=== PATIENT | male | born 1985 | race Two or more races ===

== ENCOUNTER 2017-03-06 13:10 | Emergency (ER) | payer OTHER ==
[~2017-03-06] VITALS: Ht 165.1 cm; Wt 72.6 kg
[2017-03-06 13:21] VITALS: BP 121/77
[2017-03-06] MEDS ORDERED: LIDOCAINE 1% / SOD BICARB 8.4% 20 ML VIAL. IJ ONE (13:30)
[2017-03-06] MEDS ORDERED: DIPHTH,PERTUSS(ACELL),TET TOX 0.5 ML DISP.SYRIN. VAX IM ONE (13:30)
[2017-03-06] MEDS ORDERED: HYDR-2758 PO (13:50)
--- NOTE | 2017-03-06 13:50 | PHYS DOC ---
Past Medical History Past Medical History: No Pertinent History Past Surgical History: No Surgical History Alcohol Use: Occasionally Drug Use: None Adult General Chief Complaint Chief Complaint: LACERATION/AVULSION HPI HPI 31-year-old male presenting to the emergency department after sustaining a right thumb laceration. It happened while he was working on a bike chain when it snapped and injured his thumb. It happened around 12:30. He has pain in his thumb that is severe intermittent nonradiating without alleviating factors. He denies any injury to his wrist or elbow. He denies any other injury. Review of systems is negative for chest pain shortness of breath nausea vomiting. All other review of systems is negative unless otherwise noted in history of present illness. ED course: 31-year-old male presenting to the emergency department today after sustaining a laceration injury to his right thumb. It involves the thumbnail. Otherwise secondary survey unremarkable for any other traumatic injury. Digital block performed on the right thumb. Wound was cleaned out. Tetanus updated. The wound was mostly macerated tissue was not a simple linear laceration. There were aspects of the wound they were able to be reapproximated with nonabsorbable sutures. The wound was then covered with nonadherent gauze. Patient was a follow-up with his doctor in 2-3 days. Strict return precautions were given to the patient for possible developing of infection. The patient was then discharged home in stable condition to follow up with their primary care physician over the next 2-3 days. They were to return if their symptoms worsened or if they were concerned for any reason. [id number] discharge instructions and return precautions were given. Patient's questions were answered to their satisfaction. Patient is comfortable plan. Review of Systems Review of Systems SEE ABOVE. Current Medications Current Medications Current Medications Medications (Trade) Dose Ordered Sig/Fabian Start Time Stop Time Status Last Admin Dose Admin Acetaminophen/ Hydrocodone Bitart (Lortab 5/325) 2 tab 1X ONCE 03/06/17 15:00 03/06/17 15:01 DC Diphtheria/ Tetanus/Acell Pertussis (Boostrix) 0.5 ml ONCE ONCE 03/06/17 13:30 03/06/17 13:31 DC 03/06/17 13:30 0.5 ML Lidocaine/Sodium Bicarbonate (Buffered Lidocaine 1%) 10 ml 1X ONCE 03/06/17 13:30 03/06/17 13:31 DC 03/06/17 13:30 10 ML Allergies Allergies Allergies Coded Allergies Type Severity Reaction Last Updated Verified No Known Drug Allergies 03/06/17 No Physical Exam Physical Exam SEE ABOVE Constitutional: Well developed, well nourished, no acute distress, non-toxic appearance. [] HENT: Normocephalic, atraumatic, bilateral external ears normal, oropharynx moist, no oral exudates, nose normal. [] Eyes: PERRLA, EOMI, conjunctiva normal, no discharge. [] Neck: Normal range of motion, no tenderness, supple, no stridor. [] Cardiovascular:Heart rate regular rhythm, no murmur [] Lungs & Thorax: Bilateral breath sounds clear to auscultation [] Abdomen: Bowel sounds normal, soft, no tenderness, no masses, no pulsatile masses. [] Skin: Warm, dry, no erythema, no rash. [] Back: No tenderness, no CVA tenderness. [] Extremities the patient's right upper extremity is warm and well perfused with a palpable pulse. 2 second cap refill distally. Maceration of the distal end of the thumb. No exposed bone present. No evidence of tendon laceration. Patient has full range of motion of the interphalangeal thumb joint. Neurologic: Alert and oriented X 3, normal motor function, normal sensory function, no focal deficits noted. [] Psychologic: Affect normal, judgement normal, mood normal. [] Current Patient Data Vital Signs Vital Signs Date Time Temp Pulse Resp B/P (MAP) Pulse Ox O2 Delivery O2 Flow Rate FiO2 03/06/17 13:21 98.2 91 20 96 Room Air 98.2 EKG EKG [] Radiology/Procedures Radiology/Procedures [] Course & Med Decision Making Course & Med Decision Making Pertinent Labs and Imaging studies reviewed. (See chart for details) [] Dragon Disclaimer Dragon Disclaimer This electronic medical record was generated, in whole or in part, using a voice recognition dictation system. Departure Departure Impression: Primary Impression: Thumb laceration Additional Impression: Phalanx, distal fracture of finger Disposition: 01 HOME, SELF-CARE Condition: STABLE Referrals: NICHOLAS RODAS MD Patient Instructions: Laceration Care, Adult Additional Instructions: Thank you for allowing us to participate in your care today. Followup with your primary care physician in 10 days for possible suture removal. Call your Primary Doctor tomorrow and inform them of your visit today. If you do not have a primary care provider you can ask for a list of our primary care providers. Return to the emergency department you have any new or concerning findings. This should be evaluated by the primary care physician and any necessary consulting services for continued management within a few days after discharge. Return to emergency room if you have any new or concerning symptoms including but not limited to fever, chills, nausea, vomiting, intractable pain, any new rashes, chest pain, shortness of air, uncontrolled bleeding, difficulty breathing, and/or vision loss. You may have been prescribed medication that can change in your level of thinking and ability to operate machinery. These medications include hydrocodone and Ativan. Also, Benadryl has been known to do this as well. Be sure to check with your pharmacist and ask if the medications you've prescribed can affect your level of consciousness. I recommend not operating heavy machinery or driving while on medication such as these. Scripts Amoxicillin/Potassium Clav (AUGMENTIN 875-125 TABLET) 1 Each Tablet 1 TAB PO BID, #14 TAB Prov: MARIA C POSEY MD 03/06/17 Hydrocodone Bit/Acetaminophen (HYDROCODONE-APAP 5-325 ) 1 Each Tablet 1 TAB PO PRN Q6HRS Y for PAIN, #15 TAB 0 Refills Be careful as this medication may cause you to be drowsy or tired. Do not drive on this medication. Prov: MARIA C POSEY MD 03/06/17 Laceration Repair Lac Repair Indication: []Thumb laceration Procedure: The patient was placed in the appropriate position and anesthesia around the thumb. The area was then cleaned with 1 L of saline. The laceration was closed . The wound area was then dressed with nonadherent dressing. Total repaired wound length: 2 cm. Other Items: none The patient tolerated the procedure well. Complications: none. Problem Qualifiers MARIA C POSEY MD Mar 06, 2017 13:50
--- NOTE | 2017-03-06 14:41 | RAD ---
Right thumb, 3 views, 03/06/2017: History: Thumb laceration There is a comminuted fracture of the terminal tuft of the distal phalanx. There appears to be mild overlying soft tissue deformity. No other fracture or dislocation is identified. IMPRESSION: Comminuted fracture of the terminal tuft of the distal phalanx of the right thumb.
[2017-03-06] MEDS ORDERED: AMOX1TAB61 PO (14:53)
[2017-03-06] MEDS ORDERED: HYDROcodone/APAP 5/325MG 1 TAB TABLET PO ONE (15:00)
== END 2017-03-06 15:11 | disposition home or self-care (01) ==
LOC: ER 13:10
DX: S62.521A Displaced fracture of distal phalanx of right thumb, initial encounter for closed fracture (principal); Y29.XXXA Contact with blunt object, undetermined intent, initial encounter; Y93.89 Activity, other specified; Y99.8 Other external cause status; Y92.89 Other specified places as the place of occurrence of the external cause
CPT/HCPCS: 12001; 29125; 73140; 90471; 90715; 99284-25